=== PATIENT | male | born 1990 | race Caucasian/White ===

== ENCOUNTER 2018-09-18 21:25 | Inpatient (IN) | payer SELFPAY, OTHER | END 2018-09-26 17:30 | disposition home or self-care (01) | LOC: ER 21:25 → SUR 3N 09-21 16:53 → ED HOLD 09-19 01:53 → ORTHO 4S 09-19 08:02 → SUR 3N 09-19 17:27 | DX: K61.1 Rectal abscess (principal); K80.20 Calculus of gallbladder without cholecystitis without obstruction ==